=== PATIENT | female | born 1940 | race Caucasian/White ===

== ENCOUNTER 2018-02-09 10:19 | Inpatient (IN) | payer MEDICARE, MEDICAID ==
[~2018-02-09] VITALS: Ht 172.7 cm; Wt 68.8 kg
[~2018-02-09 10:19] MED LIST: ASPI81CH43 PO; BENA40TA7 OR; CRESTOR; INSUPOW; METO-169 OR; NOVOLOG SC
[2018-02-09] MEDS ORDERED: SODIUM CHLORIDE 0.9% 1,000 ML IV ONE (10:24)
[2018-02-09] MEDS ORDERED: InsuLIN REG 1unit/0.01ml Soln (100units/ml) IV ONE (10:30)
[2018-02-09 11:16] LABS: Basophils # (auto) 0 uL; Eosinophils # (auto) 0 uL; Lymphocytes # (auto) 0.9 uL; Monocytes # (auto) 1.3 uL
[2018-02-09 11:18] LABS: Basophils % (auto) 0.5 % (0.0-2.0); Hematocrit 35.3 % (36.0-46.0); Hemoglobin 11.3 g/dL (12.2-16.2); Lymphocytes % (auto) 9.7 % (10.0-50.0); Mean Corpuscular Hemoglobin 34.7 pg (28.0-32.0); Mean Corpuscular Hgb Conc. 31.9 g/dL (32.0-36.0); Monocytes % (auto) 15.2 % (0.0-12.0); Neutrophils # (auto) 6.6 uL; Neutrophils % (auto) 74.6 % (37.0-80.0); Nucleated Red Blood Cells % 0.5 %; Platelet Count (auto) 454 10^3/uL (140-450); Red Blood Cells 3.24 10^6/uL (4.0-5.20); White Blood Cell 8.8 10^3/uL (4.4-10.8)
[2018-02-09 11:37] LABS: Lactic Acid w/Reflex 5.7 mmol/L (0.4-2.0)
[2018-02-09 11:39] LABS: Albumin 3.2 g/dL (3.4-5.0); Bilirubin, Total 0.7 mg/dL (0.2-1.0); Total Protein 8.1 g/dL (6.4-8.2)
[2018-02-09 11:47] LABS: INR 0.93 (0.9-1.15); Partial Thromboplastin Time 25.2 sec (23.78-33.04); Potassium 5.6 mmol/L (3.5-5.1)
[2018-02-09] MEDS ORDERED: DEXTROSE (50%) 50ML SYRG IV PRN (12:00)
[2018-02-09] MEDS ORDERED: InsuLIN R (HUMAN) 100 UNITS in SODIUM CHL 0.9% 99 ML IV SCH (12:25)
[2018-02-09] MEDS ORDERED: SODIUM BICARBONATE 8.4 % INJ 50ML VIAL IV ONE (12:45)
[2018-02-09] MEDS ORDERED: CALCIUM GLUC 4.65meq/50ml D5AE 50 ML IV ONE (12:45)
[2018-02-09] MEDS ORDERED: PANTOPRAZOLE 40 MG/10 ML VIAL IV ONE (13:00)
[2018-02-09] MEDS ORDERED: MORPHINE SULF INJ 2 MG/ML SYRINGE 1ML IV PRN ×2 (13:00)
[2018-02-09] MEDS ORDERED: NITROGLYCERIN 0.4 MG SL TAB SL PRN (13:00)
[2018-02-09] MEDS ORDERED: ONDANSETRON HCL 4 MG/2 ML VIAL IV PRN (13:00)
[2018-02-09] MEDS ORDERED: cefTRIAXone 1GM/10ml IVPUSH 10 ML IV ONE (13:00)
[2018-02-09] MEDS ORDERED: LABETALOL HCL 5 MG/ML ML 20ML VIAL IV PRN (13:00)
[2018-02-09] MEDS: ACCU-CHEK COMFORT CURVE STRIP VI SCH ×8 (13:06→22:37)
[2018-02-09] MEDS: SODIUM CHLORIDE 0.9% 1,000 ML IV SCH ×3 (13:07→21:44)
[2018-02-09] MEDS ORDERED: FUROSEMIDE 40 MG/4 ML VIAL IV ONE (13:15)
[2018-02-09 13:32] LABS: Magnesium 2.5 mg/dL (1.6-2.6); Phosphorus 8.5 mg/dL (2.5-4.90)
[2018-02-09 14:40] LABS: Urine Bacteria NONE SEEN /hpf (None Seen); Urine Blood Negative /uL (Negative); Urine Specific Gravity 1.023 (1.001-1.035); Urine WBC <1 /hpf (0 - 5)
[2018-02-09] MEDS ORDERED: SODIUM CHLORIDE 0.9% 1,000 ML IV SCH ×2 (15:46→17:46)
[2018-02-09] MEDS: LINEZOLID 600MG/300ML 300 ML IV SCH (16:11)
[2018-02-09 16:57] LABS: BUN/Creatinine Ratio 29.6; Bilirubin, Total 0.4 mg/dL (0.2-1.0); Calcium 8.7 mg/dL (8.5-10.1); Potassium 4.1 mmol/L (3.5-5.1); Total Protein 7.6 g/dL (6.4-8.2)
[2018-02-09] MEDS: InsuLIN R (HUMAN) 100 UNITS in SODIUM CHL 0.9% 99 ML IV SCH (17:35)
[2018-02-09 20:13] LABS: Lactic Acid w/Reflex 3.6 mmol/L (0.4-2.0)
[2018-02-09 21:39] LABS: Albumin 2.8 g/dL (3.4-5.0); BUN/Creatinine Ratio 30.5; Bilirubin, Total 0.3 mg/dL (0.2-1.0); Calcium 8.5 mg/dL (8.5-10.1); Potassium 3.5 mmol/L (3.5-5.1); Total Protein 6.9 g/dL (6.4-8.2)
[2018-02-09] MEDS ORDERED: ENOXAPARIN SOD 60 MG/0.6 ML SYRINGE SC ONE (23:30)
[2018-02-09] MEDS ORDERED: ASPirin-EC 325mg tab PO ONE (23:30)
[2018-02-10] MEDS: ACCU-CHEK COMFORT CURVE STRIP VI SCH ×11 (00:06→23:45)
[2018-02-10] MEDS: LINEZOLID 600MG/300ML 300 ML IV SCH ×2 (01:00→13:43)
[2018-02-10] MEDS: InsuLIN R (HUMAN) 100 UNITS in SODIUM CHL 0.9% 99 ML IV SCH (01:35)
[2018-02-10] MEDS: SODIUM CHLORIDE 0.9% 1,000 ML IV SCH (05:12)
[2018-02-10 08:49] LABS: Basophils # (auto) 0.1 uL; Eosinophils # (auto) 0.1 uL; Hematocrit 20.1 % (36.0-46.0); Nucleated Red Blood Cells % 0.1 %; Platelet Count (auto) 248 10^3/uL (140-450)
[2018-02-10 08:55] LABS: Basophils % (auto) 0.7 % (0.0-2.0); Lymphocytes # (auto) 2.1 uL; Lymphocytes % (auto) 17.4 % (10.0-50.0); Mean Corpuscular Hgb Conc. 33.5 g/dL (32.0-36.0); Mean Corpuscular Volume 101.3 fL (80.0-100.0); Monocytes # (auto) 0.9 uL; Monocytes % (auto) 7.7 % (0.0-12.0); Neutrophils # (auto) 8.9 uL; Neutrophils % (auto) 73.2 % (37.0-80.0); Red Blood Cells 1.98 10^6/uL (4.0-5.20); Red Cell Distribution Width 13.8 % (11.8-14.3); White Blood Cell 12.2 10^3/uL (4.4-10.8)
[2018-02-10 08:58] LABS: Hemoglobin 6.7 g/dL (12.2-16.2)
[2018-02-10] MEDS ORDERED: cefTRIAXone 1GM/10ml IVPUSH 10 ML IV SCH (09:00)
[2018-02-10 09:12] LABS: Albumin 1.7 g/dL (3.4-5.0); BUN/Creatinine Ratio 39.1; Bilirubin, Total 0.2 mg/dL (0.2-1.0); Total Protein 4.2 g/dL (6.4-8.2)
[2018-02-10 09:15] LABS: Calcium 5.4 mg/dL (8.5-10.1); Potassium 2.3 mmol/L (3.5-5.1)
[2018-02-10] MEDS: FUROSEMIDE 40 MG/4 ML VIAL IV SCH (09:51)
[2018-02-10] MEDS: PANTOPRAZOLE 40 MG/10 ML VIAL IV SCH (09:51)
[2018-02-10] MEDS: ASPirin 81 mg TAB PO SCH (09:51)
[2018-02-10] MEDS: ENOXAPARIN SOD 60 MG/0.6 ML SYRINGE SC SCH (10:00)
[2018-02-10] MEDS ORDERED: ENOXAPARIN SOD 100 MG/1 ML SYRINGE SC SCH (10:00)
[2018-02-10] MEDS ORDERED: ASPirin-EC 325mg tab PO SCH (10:00)
[2018-02-10] MEDS: LISINOPRIL 20 MG TAB PO SCH (10:00)
[2018-02-10] MEDS ORDERED: DEXTROSE (50%) 50ML SYRG IV PRN (10:30)
[2018-02-10] MEDS ORDERED: POTASSIUM CHLORIDE 40 MEQ in SOD CHL 0.45% 1,000 ML IV SCH (11:00)
[2018-02-10 11:10] LABS: Basophils # (auto) 0.1 uL; Basophils % (auto) 0.4 % (0.0-2.0); Eosinophils # (auto) 0.2 uL; Monocytes # (auto) 1.3 uL; Neutrophils # (auto) 12.3 uL
[2018-02-10 11:12] LABS: Eosinophils % (auto) 1.3 % (0.0-7.0); Hemoglobin 9.5 g/dL (12.2-16.2); Lymphocytes % (auto) 17.8 % (10.0-50.0); Mean Corpuscular Hemoglobin 34.1 pg (28.0-32.0); Mean Corpuscular Hgb Conc. 34.1 g/dL (32.0-36.0); Mean Corpuscular Volume 99.9 fL (80.0-100.0); Monocytes % (auto) 7.6 % (0.0-12.0); Neutrophils % (auto) 72.9 % (37.0-80.0); Platelet Count (auto) 346 10^3/uL (140-450); White Blood Cell 16.9 10^3/uL (4.4-10.8)
[2018-02-10] MEDS: POTASSIUM CHL 20MEQ/100ML 100 ML IV SCH ×2 (11:13→13:46)
[2018-02-10 11:49] LABS: Albumin 2.5 g/dL (3.4-5.0); BUN/Creatinine Ratio 32.9; Bilirubin, Total 0.3 mg/dL (0.2-1.0); Calcium 7.7 mg/dL (8.5-10.1); Potassium 3.3 mmol/L (3.5-5.1); Total Protein 6.1 g/dL (6.4-8.2)
[2018-02-10] MEDS: InsuLIN REG 1unit/0.01ml Soln (100units/ml) SC SCH ×4 (11:49→23:45)
[2018-02-10] MEDS ORDERED: CALCIUM CARB 500 MG CHEW TAB PO SCH (12:00)
[2018-02-10 12:10] LABS: Basophils # (auto) 0.1 uL; Basophils % (auto) 0.5 % (0.0-2.0); Eosinophils # (auto) 0.2 uL; Eosinophils % (auto) 1.4 % (0.0-7.0); Hematocrit 26.8 % (36.0-46.0); Hemoglobin 9.1 g/dL (12.2-16.2); Lymphocytes # (auto) 2.8 uL; Lymphocytes % (auto) 17.2 % (10.0-50.0); Mean Corpuscular Hemoglobin 33.7 pg (28.0-32.0); Mean Corpuscular Hgb Conc. 33.7 g/dL (32.0-36.0); Mean Corpuscular Volume 99.9 fL (80.0-100.0); Monocytes # (auto) 1.2 uL; Monocytes % (auto) 7.6 % (0.0-12.0); Neutrophils % (auto) 73.3 % (37.0-80.0); Platelet Count (auto) 328 10^3/uL (140-450); Red Blood Cells 2.69 10^6/uL (4.0-5.20); Red Cell Distribution Width 14.1 % (11.8-14.3); White Blood Cell 16.4 10^3/uL (4.4-10.8)
[2018-02-10] MEDS ORDERED: POTASSIUM CHLORIDE 40 MEQ in SOD CHL 0.45% 1,000 ML IV ONE (16:30)
[2018-02-10] MEDS ORDERED: InsuLIN REG 1unit/0.01ml Soln (100units/ml) SC SCH (22:00)
[2018-02-10] MEDS ORDERED: POTASSIUM CHL 20 Meq TABLET PO SCH (22:00)
[2018-02-10] MEDS: ATORVASTATIN 20 MG TAB PO SCH (22:07)
[2018-02-11] MEDS: LINEZOLID 600MG/300ML 300 ML IV SCH (00:57)
[2018-02-11] MEDS: ACCU-CHEK COMFORT CURVE STRIP VI SCH ×5 (04:00→22:00)
[2018-02-11] MEDS: InsuLIN REG 1unit/0.01ml Soln (100units/ml) SC SCH ×4 (04:00→17:00)
[2018-02-11 07:54] LABS: Basophils # (auto) 0.1 uL; Eosinophils # (auto) 0.3 uL; Hematocrit 26.5 % (36.0-46.0); Mean Corpuscular Hgb Conc. 34.1 g/dL (32.0-36.0); Nucleated Red Blood Cells % 0.1 %; White Blood Cell 11.3 10^3/uL (4.4-10.8)
[2018-02-11 07:55] LABS: Basophils % (auto) 0.6 % (0.0-2.0); Eosinophils % (auto) 2.3 % (0.0-7.0); Lymphocytes # (auto) 4.2 uL; Lymphocytes % (auto) 37.6 % (10.0-50.0); Mean Corpuscular Hemoglobin 33.9 pg (28.0-32.0); Mean Corpuscular Volume 99.3 fL (80.0-100.0); Monocytes # (auto) 0.8 uL; Monocytes % (auto) 7.3 % (0.0-12.0); Neutrophils # (auto) 5.9 uL; Neutrophils % (auto) 52.2 % (37.0-80.0); Platelet Count (auto) 292 10^3/uL (140-450); Red Blood Cells 2.67 10^6/uL (4.0-5.20)
[2018-02-11 08:15] LABS: Albumin 2.4 g/dL (3.4-5.0); BUN/Creatinine Ratio 24.1; Bilirubin, Total 0.4 mg/dL (0.2-1.0); Calcium 7.5 mg/dL (8.5-10.1); Potassium 4.7 mmol/L (3.5-5.1); Total Protein 5.8 g/dL (6.4-8.2)
[2018-02-11] MEDS: LISINOPRIL 20 MG TAB PO SCH (08:17)
[2018-02-11] MEDS: FUROSEMIDE 40 MG/4 ML VIAL IV SCH (08:17)
[2018-02-11] MEDS: PANTOPRAZOLE 40 MG/10 ML VIAL IV SCH (08:17)
[2018-02-11] MEDS: ASPirin 81 mg TAB PO SCH (08:17)
[2018-02-11] MEDS: ENOXAPARIN SOD 60 MG/0.6 ML SYRINGE SC SCH ×3 (08:18→23:15)
[2018-02-11] MEDS ORDERED: DEXTROSE (50%) 50ML SYRG IV PRN (09:15)
[2018-02-11] MEDS: INSULIN NPH Isophane (HUMAN) 1unit/0.01ml Susp(100units/ml) SC SCH ×2 (10:43→18:16)
[2018-02-11 12:56] VITALS: BP 112/57
[2018-02-11 13:00] VITALS: BP 92/41
[2018-02-11 17:00] VITALS: BP 124/64
[2018-02-11 20:00] VITALS: BP 112/57
[2018-02-11] MEDS ORDERED: InsuLIN REG 1unit/0.01ml Soln (100units/ml) SC SCH (22:00)
[2018-02-11] MEDS: ATORVASTATIN 20 MG TAB PO SCH (23:14)
[2018-02-12 05:00] VITALS: BP 116/62
[2018-02-12 06:09] LABS: Basophils # (auto) 0.1 uL; Basophils % (auto) 0.8 % (0.0-2.0); Eosinophils # (auto) 0.3 uL; Eosinophils % (auto) 2.3 % (0.0-7.0); Hematocrit 26.2 % (36.0-46.0); Lymphocytes # (auto) 5.1 uL; Lymphocytes % (auto) 45.2 % (10.0-50.0); Mean Corpuscular Hemoglobin 33.7 pg (28.0-32.0); Mean Corpuscular Hgb Conc. 34.2 g/dL (32.0-36.0); Mean Corpuscular Volume 98.5 fL (80.0-100.0); Monocytes # (auto) 0.9 uL; Monocytes % (auto) 8.2 % (0.0-12.0); Neutrophils # (auto) 4.9 uL; Neutrophils % (auto) 43.5 % (37.0-80.0); Nucleated Red Blood Cells % 0.1 %; Platelet Count (auto) 289 10^3/uL (140-450); Red Blood Cells 2.66 10^6/uL (4.0-5.20); Red Cell Distribution Width 13.9 % (11.8-14.3); White Blood Cell 11.2 10^3/uL (4.4-10.8)
[2018-02-12 06:27] LABS: Calcium 7.7 mg/dL (8.5-10.1); Potassium 4.1 mmol/L (3.5-5.1)
[2018-02-12 06:34] LABS: BUN/Creatinine Ratio 24.5
[2018-02-12] MEDS: InsuLIN REG 1unit/0.01ml Soln (100units/ml) SC SCH ×3 (06:59→17:00)
[2018-02-12] MEDS: INSULIN NPH Isophane (HUMAN) 1unit/0.01ml Susp(100units/ml) SC SCH (07:00)
[2018-02-12] MEDS: ACCU-CHEK COMFORT CURVE STRIP VI SCH ×3 (07:00→17:00)
[2018-02-12 09:00] VITALS: BP 136/58
[2018-02-12] MEDS: PANTOPRAZOLE 40 MG/10 ML VIAL IV SCH (10:02)
[2018-02-12] MEDS: LISINOPRIL 20 MG TAB PO SCH (10:03)
[2018-02-12] MEDS: ASPirin 81 mg TAB PO SCH (10:04)
[2018-02-12] MEDS: FUROSEMIDE 40 MG/4 ML VIAL IV SCH (10:04)
[2018-02-12] MEDS: ENOXAPARIN SOD 60 MG/0.6 ML SYRINGE SC SCH (10:05)
[2018-02-12 13:00] VITALS: BP 121/60
[2018-02-12 15:40] VITALS: BP 136/58
[2018-02-12] MEDS ORDERED: MORPHINE SULFATE 4 MG/ML SYR/VIAL IV PRN ×2 (16:45)
[2018-02-12 16:50] VITALS: BP 125/61
[2018-02-12 22:00] VITALS: BP 102/35
== END 2018-02-12 17:38 | disposition home or self-care (01) | DRG 871 ==
LOC: EDBD 10:19 → ER 10:21 → TELE 10:22 → TELE-WESTW 02-11 10:48
PROVIDERS: ADMIT Internal Medicine; ATTEND Internal Medicine
DX: A41.9 Sepsis, unspecified organism (principal); I50.43 Acute on chronic combined systolic (congestive) and diastolic (congestive) heart failure; G92 Toxic encephalopathy; N17.0 Acute kidney failure with tubular necrosis; E43 Unspecified severe protein-calorie malnutrition; E11.10 Type 2 diabetes mellitus with ketoacidosis without coma; I13.0 Hypertensive heart and chronic kidney disease with heart failure and stage 1 through stage 4 chronic kidney disease, or unspecified chronic kidney disease; E87.0 Hyperosmolality and hypernatremia; E87.1 Hypo-osmolality and hyponatremia; N18.4 Chronic kidney disease, stage 4 (severe); J44.9 Chronic obstructive pulmonary disease, unspecified; E87.6 Hypokalemia; E11.22 Type 2 diabetes mellitus with diabetic chronic kidney disease; E11.21 Type 2 diabetes mellitus with diabetic nephropathy; E83.51 Hypocalcemia; D63.8 Anemia in other chronic diseases classified elsewhere; E78.5 Hyperlipidemia, unspecified; E87.5 Hyperkalemia; F17.210 Nicotine dependence, cigarettes, uncomplicated; H54.62 Unqualified visual loss, left eye, normal vision right eye; Z90.710 Acquired absence of both cervix and uterus; I70.8 Atherosclerosis of other arteries; Z91.19 Patient's noncompliance with other medical treatment and regimen; Z90.49 Acquired absence of other specified parts of digestive tract; Z88.0 Allergy status to penicillin; Z79.4 Long term (current) use of insulin; Z79.899 Other long term (current) drug therapy; Z68.23 Body mass index [BMI] 23.0-23.9, adult; Z79.82 Long term (current) use of aspirin
CPT/HCPCS: 36415; 36600; 70450; 71250; 74176; 80048; 80053; 81001; 82010; 82805; 82962; 83036; 83605; 83735; 83880; 83930; 84100; 84443; 84484; 85025; 85610; 85730; 86850; 86900; 86901; 87040; 87086; 87088; 87186; 92610; 93005; 93306; 93886; 96361; 96365; 96367; 96375; 97163; 99291; C9113; J0610; J0696; J1815; J3480